=== PATIENT | female | born 1990 | race African-American/Black ===

== ENCOUNTER 2022-07-04 07:31 | Inpatient (IN) | payer MEDICAID ==
[~2022-07-04] VITALS: Ht 160 cm; Wt 83.9 kg
[2022-07-04] MEDS ORDERED: LACTATED RINGERS 1,000 ML IV SCH (08:15)
[2022-07-04] MEDS ORDERED: METHYLERGONOVINE MALEATE 0.2 MG/ML IM PRN (08:15)
[2022-07-04] MEDS ORDERED: BUTORPHANOL TARTRATE 2 MG/ML VIAL IV PRN (08:15)
[2022-07-04 08:45] LABS: BASOPHILS % 0.3 % (0.0-2.0); EOSINOPHILS % 1.6 % (0.0-5.0); HEMATOCRIT. 35.4 % (36.0-48.0); HEMOGLOBIN. 11.9 g/dL (12.0-16.0); LYMPHOCYTES % 16.6 % (20.0-50.0); MEAN CORPUSCULAR HEMOGLOBIN 32.8 pg (28.0-32.0); MEAN CORPUSCULAR VOLUME 97.5 fL (81.0-99.0); MEAN PLATELET VOLUME 6.8 fl (7.4-10.4); MONOCYTES % 8.4 % (2.0-8.0); NEUTROPHILS % 73.1 % (40.0-76.0); PLATELET 249 x1000/uL (130-400); RED BLOOD CELL COUNT 3.63 mill/uL (4.2-5.4); RED CELL DISTRIBUTION WIDTH 13.3 % (11.6-14.6)
[2022-07-04 08:55] LABS: CLARITY URINE CLOUDY (CLEAR); COLOR URINE DARK YELLOW (YELLOW); KETONES URINE NEGATIVE (NEGATIVE); LEUKOCYTE ESTERASE URINE 1+ (NEGATIVE); NITRITE URINE NEGATIVE (NEGATIVE); OCCULT BLOOD URINE 3+ (NEGATIVE); PROTEIN URINE 1+ (NEGATIVE); SPECIFIC GRAVITY URINE 1.018 (1.005-1.030)
[2022-07-04 09:06] LABS: PARTIAL THROMBOPLASTIN TIME 31.1 sec (23.4-31.0); PROTHROMBIN TIME 10.3 sec (9.6-11.0)
[2022-07-04] MEDS ORDERED: MORPHINE SULFATE/PF 1MG/ML 10ML AMP ONE (09:08)
[2022-07-04] MEDS ORDERED: NALOXONE HCL 0.4 MG/ML 1ML VIAL IV PRN (09:30)
[2022-07-04] MEDS ORDERED: KETOROLAC 30MG/ML VIAL IV SCH (09:30)
[2022-07-04] MEDS ORDERED: EPHEDRINE SULFATE 50MG/ML VIAL ONE (09:53)
[2022-07-04] MEDS ORDERED: OXYTOCIN 10 UNITS/ML 1ML ONE ×2 (09:53→10:01)
[2022-07-04] MEDS ORDERED: KETOROLAC 60MG/2ML VIAL IM ONE (09:53)
[2022-07-04] MEDS ORDERED: CEFAZOLIN SODIUM 1000MG/VIAL ONE (09:53)
[2022-07-04] MEDS ORDERED: DEXAMETHASONE 4MG/ML 1ML VIAL ONE (09:53)
[2022-07-04] MEDS ORDERED: ONDANSETRON HCL 4MG/2ML INJ ONE (09:53)
[2022-07-04] MEDS ORDERED: METOCLOPRAMIDE HCL 10MG/2ML VIAL ONE (09:53)
[2022-07-04] MEDS ORDERED: PENICILLIN G POTASSIUM 5 MMU in DEXT 5% WATER 100 ML IV NR (10:00)
[2022-07-04] MEDS ORDERED: PHENYLEPHRINE HCL 10 MG/ML 1ML (IV VIAL) IV ONE (10:01)
[2022-07-04 10:16] LABS: HEPATITIS B SURFACE ANTIGEN NEGATIVE
[2022-07-04] MEDS ORDERED: IBUPROFEN 400MG TABLET PO PRN (11:00)
[2022-07-04] MEDS ORDERED: BISACODYL 10MG SUPP PR PRN (11:00)
[2022-07-04] MEDS ORDERED: HYDROCODONE/ACETAMINOPHEN 5/325MG TABLET PO PRN ×2 (11:00)
[2022-07-04] MEDS ORDERED: NALOXONE HCL 0.4MG/ML VIAL IV PRN (11:00)
[2022-07-04] MEDS ORDERED: OXYTOCIN 30 UNITS/500ML NS PMX 500 ML IV SCH (11:00)
[2022-07-04] MEDS ORDERED: DIPHENHYDRAMINE 25MG CAPSULE PO PRN (11:00)
[2022-07-04] MEDS ORDERED: LANOLIN OINT 7GM TUBE TOP PRN (11:00)
[2022-07-04] MEDS ORDERED: ONDANSETRON HCL 4MG/2ML INJ IV PRN (11:00)
[2022-07-04] MEDS ORDERED: RHO(D) IMMUNE GLOBULIN 300 MCG/SYR IM PRN (11:00)
[2022-07-04 13:00] VITALS: BP 100/54
[2022-07-04 13:37] LABS: *AMPHETAMINES SCREEN URINE NEGATIVE (NEGATIVE); *BARBITURATES SCREEN URINE NEGATIVE (NEGATIVE); *BENZODIAZEPINES SCREEN URINE NEGATIVE (NEGATIVE); *COCAINE SCREEN URINE NEGATIVE (NEGATIVE); CANNABINOID URINE SCREEN NEGATIVE (NEGATIVE); METHADONE URINE SCREEN NEGATIVE (NEGATIVE); OPIATES URINE SCREEN NEGATIVE (NEGATIVE); PHENCYCLIDINE URINE SCREEN NEGATIVE (NEGATIVE)
[2022-07-04] MEDS ORDERED: PENICILLIN G POTASSIUM 2.5 MMU in DEXTROSE 5% WATER 50 ML IV SCH (14:00)
[2022-07-04 14:30] VITALS: BP 110/60
[2022-07-04 20:00] VITALS: BP 105/66
[2022-07-05 00:30] VITALS: BP 104/56
[2022-07-05 04:30] VITALS: BP 115/75
[2022-07-05 06:45] LABS: BASOPHILS % 0.1 % (0.0-2.0); EOSINOPHILS % 0.3 % (0.0-5.0); HEMATOCRIT. 25.4 % (36.0-48.0); HEMOGLOBIN. 8.5 g/dL (12.0-16.0); LYMPHOCYTES % 15.4 % (20.0-50.0); MEAN CORPUSCULAR HEMOGLOBIN 33.2 pg (28.0-32.0); MEAN CORPUSCULAR VOLUME 98.9 fL (81.0-99.0); MEAN PLATELET VOLUME 7.1 fl (7.4-10.4); MONOCYTES % 8.5 % (2.0-8.0); NEUTROPHILS % 75.7 % (40.0-76.0); PLATELET 209 x1000/uL (130-400); RED BLOOD CELL COUNT 2.56 mill/uL (4.2-5.4); RED CELL DISTRIBUTION WIDTH 13.4 % (11.6-14.6)
[2022-07-05 07:30] VITALS: BP 104/64
[2022-07-05] MEDS: PRENATAL VIT/FE FUMARATE/FA TABLET PO SCH (08:53)
[2022-07-05 13:11] LABS: HIV SCREEN 4G Non Reactive (Non Reactive)
[2022-07-05] MEDS: IBUPROFEN 800MG TABLET PO PRN ×2 (15:01→20:55)
[2022-07-05 16:00] VITALS: BP 106/63
[2022-07-05 20:00] VITALS: BP 108/67
[2022-07-05] MEDS: DOCUSATE SODIUM 100MG CAPSULE PO SCH (20:54)
[2022-07-06] MEDS: IBUPROFEN 800MG TABLET PO PRN ×3 (03:00→20:14)
[2022-07-06 04:00] VITALS: BP 111/63
[2022-07-06] MEDS: PRENATAL VIT/FE FUMARATE/FA TABLET PO SCH (08:34)
[2022-07-06 08:51] VITALS: BP 114/74
[2022-07-06 15:00] VITALS: BP 117/70
[2022-07-06 20:00] VITALS: BP 119/68
[2022-07-06] MEDS: DOCUSATE SODIUM 100MG CAPSULE PO SCH (20:14)
[2022-07-07] MEDS: IBUPROFEN 800MG TABLET PO PRN ×2 (03:41→10:14)
[2022-07-07 04:00] VITALS: BP 120/72
[2022-07-07 08:10] VITALS: BP 122/83
[2022-07-07] MEDS: PRENATAL VIT/FE FUMARATE/FA TABLET PO SCH (08:40)
[2022-07-07] MEDS ORDERED: MULT-1146 MT (09:47)
[2022-07-07] MEDS ORDERED: IBUP-2030 PO (09:47)
[2022-07-07] MEDS ORDERED: FERR325T6 MT (09:47)
== END 2022-07-07 11:20 | disposition home or self-care (01) | DRG 540 ==
LOC: 8 EST LDRP 07:31 → OBSVTOIN 07:32 → 8EST 13:05
PROVIDERS: ADMIT Obstetrics & Gynecology; ATTEND Obstetrics & Gynecology
PROC: 10D00Z1 Extraction of Products of Conception, Low, Open Approach (ICD-10-PCS; principal; 2022-07-04)
DX: O32.1XX0 Maternal care for breech presentation, not applicable or unspecified (principal); O60.14X0 Preterm labor third trimester with preterm delivery third trimester, not applicable or unspecified; O42.913 Preterm premature rupture of membranes, unspecified as to length of time between rupture and onset of labor, third trimester; Z3A.35 35 weeks gestation of pregnancy; Z37.0 Single live birth; O99.02 Anemia complicating childbirth; D25.9 Leiomyoma of uterus, unspecified
CPT/HCPCS: 36415; 76805; 76818; 80305; 81003; 85025; 86592; 86762; 86850; 86900; 87340; 87389; 87426; 88307; 99281; G0378; J0690; J1100; J1885; J2274; J2370; J2405; J2540; J2765; J3490; J7060; J7120; A4315; J2590